=== PATIENT | female | born 1965 | race Caucasian/White ===

== ENCOUNTER 2017-06-21 17:47 | Emergency (ER) | payer BC ==
[2017-06-21] MEDS ORDERED: Fentanyl 100 MCG/2 ML VIAL ONE (17:59)
[2017-06-21] MEDS ORDERED: Ketorolac Tromethamine 30 MG/ML VIAL ONE (18:14)
[2017-06-21] MEDS ORDERED: Lorazepam 2 MG/ML VIAL ONE (18:15)
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
[2017-06-21] MEDS ORDERED: Bacitracin Zinc 1 Packet ONE (19:32)
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
== END 2017-06-21 19:48 | disposition home or self-care (01) ==
LOC: ERS 17:47
DX: S80.01XA Contusion of right knee, initial encounter (principal); S70.02XA Contusion of left hip, initial encounter; S00.31XA Abrasion of nose, initial encounter; S00.511A Abrasion of lip, initial encounter; M25.532 Pain in left wrist; W55.19XA Other contact with horse, initial encounter; Y93.K9 Activity, other involving animal care
CPT/HCPCS: 70450; 72125; 96374; 96375; G0390; J1885; J2060; J3010